=== PATIENT | male | born 1975 ===

== ENCOUNTER 2022-08-05 12:11 | Emergency (ER) | payer OTHER, SELFPAY ==
[2022-08-05 12:16] VITALS: BP 121/97; PULSE 86; RESP 18; TEMP 36.6; O2SAT 98; BMI 29.0
--- NOTE | 2022-08-05 12:17 | ED_ITS ---
HPI - Wound/Laceration General Chief Complaint: Wound/Laceration Stated Complaint: Arm lac Time Seen by Provider: 08/05/22 12:25 Source: patient Mode of arrival: ambulatory Limitations: no limitations History of Present Illness HPI narrative: Patient is a 46 year old male presenting with a laceration to his right forearm after cutting it at work on a metal pipe. He states that he was working on a fence at work when he lost his balance and slipped, tried to catch himself and cut himself on metal. Patient reports he has a laceration that is deep. Denies numbness, tingling, fevers, chills . Unsure of tetanus status. Related Data Allergies Allergy/AdvReac Type Severity Reaction Status Date / Time No Known Allergies Allergy Verified 08/05/22 12:14 Review of Systems Review of Systems: Constitutional : No Fever, No Chills, Cardiovascular : No Chest Pain, No SOB Respiratory : No Dyspnea Gastrointestinal : No abdominal pain Musculoskeletal : No Joint Swelling Skin : No rash, positive skin laceration Neuro : No Weakness, No Numbness Psych : No SI/HI Yes all other systems are reviewed and are negative [facility] Past Medical History Attestation statement: The following information was validated with the patient. Source: old records reviewed and nursing notes reviewed Social History Social History Advance Directives: No Advance Directives Information Provided: Yes Physical Exam Vital Signs: Vital Signs: Last Vital Signs Temp 98 F 08/05/22 12:16 Pulse 86 08/05/22 12:16 Resp 18 08/05/22 12:16 BP 121/97 H 08/05/22 12:16 Pulse Ox 98 08/05/22 12:16 O2 Del Method Room Air 08/05/22 12:16 BMI result Body Mass Index 29.0 vss Appearance: Alert.? Oriented X3.? No acute distress.? Head: Normocephalic, atraumatic, no step-offs or deformities Eyes: Pupils equal, round and reactive to light.? ENT: Pharynx normal.? Neck: Normal inspection.? Neck supple.? CVS: Normal heart rate and rhythm.? Pulses normal.? Respiratory: No respiratory distress.? Breath sounds normal.? Abdomen: Soft and nontender.? Skin: Skin warm and dry.? Normal skin color.? Normal skin turgor.?+ 5 cm Simple linear laceration without foreign bodies to right ventral forearm. No ligament or tendon exposure. Extremities: No lower extremity edema.? No calf ttp. 5/5 strength to bilateral upper and lower extremities Neuro: Oriented X 3.? No motor deficit.? No sensory deficit. CN 2-12 intact Course Course Course Narrative: RME: 46 yo M w/no sig PMHx c/o right arm laceration s/p ladder giving out and landing on fence 30mins [employer]. Tetanus 5 years ago per patient. 5cm laceration noted to R forearm, underlying structures appear intact Will need suture repair Full HPI, ROS and PE to be performed by primary ED provider. Reevaluation(s) Reevaluation #1: 5,, 5-0 sutures placed right forearm, nonverbal, advised to return in 7-10 days for suture removal educated on signs of infection. Educated patient on diagnosis and treatment plan, answered all question, patient verbalizes understanding. At this time patient will be discharged home, advised to return with new or worsening symptoms. Educated on worrisome signs and symptoms and when to return. At this time I feel comfortable discharge home. Time: 13:34 Medications Administered Discontinued Medications Generic Name Dose Route Start Last Admin Trade Name Freq PRN Reason Stop Dose Admin Lidocaine HCl 5 ml 08/05/22 12:18 08/05/22 12:36 Lidocaine Hcl 1 % Mpf 5 Ml Vial INFILTRATI 08/05/22 12:19 5 ml ONCE ONE Administration Lidocaine HCl 5 ml 08/05/22 12:19 08/05/22 12:36 Lidocaine Hcl 1 % Mpf 5 Ml Vial INFILTRATI 08/05/22 12:20 5 ml ONCE ONE Administration Medical Decision Making Medical Decision Making [facility] Narrative: 46-year-old male presents with work related injury laceration to right forearm. No fall, head strike or any other trauma. Physical exam significant for + 5 cm Simple linear laceration without foreign bodies to right ventral forearm. No ligament or tendon exposure. likely simple laceration, no signs of foreign body or ligament or tendon injury. Unlikely some reddened limb or neurovascular compromise. No signs of fracture dislocation. Plan repair with sutures Differential Diagnosis Differential Diagnoses: The differential diagnosis associated with the presenta tion includes likely simple laceration, no signs of foreign body or ligament or tendon injury. Unlikely some reddened limb or neurovascular compromise. No signs of fracture dislocation. Core Measures AMI core measures followed: Yes Measure exclusions: not indicated Procedures Laceration Laceration 1: Site: upper extremity Side (If applicable): right Size (cm): 5 Description: linear Depth: simple, single layer Local Anesthetic: lidocaine 1% Amount of anesthesia used (mL): 8 Pre-repair: wound explored, irrigated extensively and deep structures intact Skin layer closed with: nylon Size (cm): 4-0 Number of sutures: 5 Technique: simple, interrupted Discharge Plan Discharge Clinical Impression: Laceration, Work related injury Patient Disposition: Home, Self-Care Additional Instructions: Take your medications as prescribed. If you were prescribed antibiotics today, it is important that you take your medication to their entirety, do not skip any doses, do not finish them early. Follow-up with your primary care provider this week. Return to the emergency department with new or worsening symptoms. Such as fevers, chills, chest pain, shortness of breath, nausea, vomiting, dizziness, headache, vision changes, lethargy In case of emergency call 911 Follow up with the work connection as this was a work related injury. Return with any signs of infection such as redness, swelling and discharge Return in 7-10 days for suture removal Referrals: Physician,Leslye J [Primary Care Provider] - 2 days Stand Alone Forms: Work/School Release
[2022-08-05] MEDS: Lidocaine HCl 1 % MPF 5 ML VIAL INFILTRATI ×2 (12:36)
[2022-08-05] MEDS: Diphth,Pertus(ACell),Tet Adult 0.5 ML SYRINGE IM (13:38)
--- NOTE | 2022-08-05 13:46 | PC.NURSE ---
pt tetanus updated left delt, vis provided
== END 2022-08-05 13:47 | disposition home or self-care (01) ==
PROVIDERS: Emergency Provider Emergency Medicine
DX: S51.811A Laceration without foreign body of right forearm, initial encounter (principal); W01.118A Fall on same level from slipping, tripping and stumbling with subsequent striking against other sharp object, initial encounter; Y93.H9 Activity, other involving exterior property and land maintenance, building and construction; Y92.9 Unspecified place or not applicable; Y99.0 Civilian activity done for income or pay; Z23 Encounter for immunization
CPT/HCPCS: 12002; 90471; 90715; 99282; 99284

== ENCOUNTER 2022-08-13 13:22 | Emergency (ER) | payer OTHER, SELFPAY ==
[2022-08-13 13:33] VITALS: BP 131/73; PULSE 72; RESP 18; TEMP 36.2; O2SAT 98; BMI 29.8
--- NOTE | 2022-08-13 13:42 | ED_ITS ---
HPI - General Adult General Chief complaint: Wound/Laceration Stated complaint: needs stitches removed Time Seen by Provider: 08/13/22 13:44 Source: patient, RN notes reviewed and old records reviewed Mode of arrival: ambulatory Limitations: no limitations History of Present Illness HPI narrative: 46-year-old male presents for evaluation of suture removal Patient was seen here 8 days ago for a wound to his right forearm He had 6 sutures placed that he is looking have removed today Denies any pain from the area He reports that ?there was a very small amount of pus draining yesterday. ? No fevers or chills Related Data Previous Rx's Medication Instructions Recorded cephalexin 500 mg capsule 500 mg PO QID #28 caps 08/13/22 Allergies Allergy/AdvReac Type Severity Reaction Status Date / Time No Known Allergies Allergy Verified 08/13/22 13:37 Review of Systems 2 Integumentary/Breasts: Skin/Breast: Reports erythema and Reports wounds Physical Exam ED Vital Signs: Vital Signs - 24 hr 08/13/22 13:33 Temperature 97.2 F Pulse Rate 72 Respiratory Rate 18 Blood Pressure 131/73 Pulse Oximetry 98 Oxygen Delivery Method Room Air BMI result Body Mass Index 29.8 Skin Other: Patient has a 5 cm linear laceration on the ventral surface of right forearm. Six sutures are all in place. There is a small amount of erythema extending approximately 2 cm in each direction around the wound. No obvious drainage. Medical Decision Making Medical Decision Making [facility] Narrative: I removed 6 sutures without difficulty. There was no wound dehiscence. There was a small amount of erythema, concern for developing cellulitis. No obvious abscess palpable, no drainage noted. We will put the patient on cephalexin for 1 week Differential Diagnosis Wound check Suture removal Cellulitis Laceration Discharge Plan Discharge Clinical Impression: Encounter for removal of sutures Patient Disposition: Home, Self-Care Instructions: Stitches Removal (ED) Additional Instructions: Take cephalexin 4 times daily for the next 7 days If you see worsening redness, increased pain or drainage from the wound return to the ER Follow-up with your primary doctor Prescriptions: New cephalexin 500 mg capsule 500 mg PO QID Qty: 28 0RF
== END 2022-08-13 13:53 | disposition home or self-care (01) ==
PROVIDERS: Emergency Provider Emergency Medicine
DX: Z48.02 Encounter for removal of sutures (principal)
CPT/HCPCS: 99282; 99283